=== PATIENT | female | born 1965 | race Hispanic/Latino ===

== ENCOUNTER 2020-07-05 11:15 | Emergency (ER) | payer OTHER ==
[~2020-07-05] VITALS: Ht 167.6 cm; Wt 74.8 kg
--- NOTE | 2020-07-05 11:44 | Emergency Department Note ---
History of Present Illnes History of Present Illness Chief Complaint: Eye, Ear, Nose, Throat, Dental History of Present Illness This is a 55 year old female, with no significant past medical history, who presents with a two-week history of progressively worsening itching of the nose and throat, sneezing, and clear rhinorrhea. She denies any cough, chest tightness, or throat tightness. Patient has no history of asthma. Patient has been taking Genesis at home, without relief of her symptoms. Patient states that she developes these symptoms at about this time each year, and that her PCP typically gives her a steroid shot, which relieves her symptoms. Patient denies any fever, chills, nausea, or vomiting. Historian: Patient Arrival Mode: Car Past Medical/Family History Physician Review I have reviewed the patient's past medical and family history. Any updates have been documented here. Past Medical History Recent Fever: No Clinical Suspicion of Infectio: No New/Unexplained Change in Ment: No Past Medical History: None Past Surgical History: None Social History Smoking Cessation: Never Smoker Alcohol Use: None Any Illegal Drug Use: No TB Exposure/Symptoms: No Physically hurt or threatened: No Family History Family history of heart diseas: No Other Any Pre-Existing Lines (PICC,: No Is patient up to date on immun: No Review of Systems Review of Systems Constitutional: Denies chills, Denies fever, Denies malaise EENTM: Denies eye pain, Denies tearing Cardiovascular: Denies chest pain, Denies palpitations Respiratory: Denies dyspnea Gastrointestinal: Denies nausea, Denies vomiting Genitourinary: Reports no symptoms Musculoskeletal: Reports no symptoms Integumentary: Denies change in color, Denies rash Neurological: Reports no symptoms Psychological: Reports no symptoms Review of other systems: All other systems negative Physical Exam Related Data Allergies: Coded Allergies: cephalexin (Verified Allergy, Unknown, 07/05/20) Triage Vital Signs Vital Signs Date Time Temp Pulse Resp B/P (MAP) Pulse Ox O2 Delivery O2 Flow Rate FiO2 07/05/20 11:15 98.0 77 16 142/85 100 Room Air Vital signs reviewed: Yes Physical Exam CONSTITUTIONAL Constitutional: Present well-developed, Present well-nourished; Absent distressed, Absent ill appearing HENT HENT: Present normocephalic, Present atraumatic, Present rhinorrhea (clear rhinorrhea), Present pharynx abnormal (slightly erythematous posterior pharynx without exudate.); Absent nose normal (erythematous and edematous inferonasal turbinates), Absent nasal congestion EYES Eyes: Reports PERRL, Reports conjunctivae normal NECK Neck: Present ROM normal PULMONARY Pulmonary: Present effort normal, Present breath sounds normal CARDIOVASCULAR Cardiovascular: Present regular rhythm, Present heart sounds normal, Present capillary refill normal, Present normal rate; Absent murmur GASTROINTESTINAL GENITOURINARY SKIN Skin: Present warm, Present dry; Absent erythema, Absent rash MUSCULOSKELETAL Musculoskeletal: Present ROM normal NEUROLOGICAL Neurological: Present alert, Present oriented x 3, Present no gross motor or sensory deficits PSYCHOLOGICAL Psychological: Present mood/affect normal, Present judgement normal Assessment & Plan Medical Decision Making MDM - Recommended over the counter medications to take for your allergy symptoms: - Cetirzine/Zyrtec 10 mg - 1 tab daily - Nasacort Nasal [place] - 2 sprays each nostril once daily. - Drink plenty of water, to stay well hydrated. - Follow-up with your Primary Care Physician, if your symptoms persist or worsen, despite treatment. (At the end of the visit, patient stated that "Dr. Garber used to prescribe Alprazolam, to help her relax, but that he can't prescribe it for her any more, due to the rules at their clinic." She questioned if I could prescribe this medication for her. I explained that since I am seeing her for allergic rhinitis, that this medication cannot be prescribed. She is advised to follow up with her PCP for further prescriptions of this medication, if needed. [facility] [employer] website was queried, and her last prescription for this medication was in 04/2020. Prior to that, it appears that she was receiving monthly prescriptions. It appears that there was an attempt to wean down the dosing.) Assessment & Plan Final Impression: (1) Allergic rhinitis (2) Pruritus (3) Sneezing Depart Disposition: HOME, SELF-CARE Last Vital Signs Date Time Temp Pulse Resp B/P (MAP) Pulse Ox O2 Delivery O2 Flow Rate FiO2 07/05/20 11:15 98.0 77 16 142/85 100 Room Air DAMIÁN COOK MD Jul 05, 2020 11:44
[2020-07-05] MEDS ORDERED: DEXAMETHASONE SOD PHOS 10 MG/1 ML VIAL IM ONE (11:45)
[2020-07-05] MEDS ORDERED: DEXAMETHASONE SOD PHOS INJ 4 MG/ML VIAL ONE (11:56)
--- OUTSIDE RECORDS SUMMARY | 2020-07-05 12:24 | XMS REPORT | Clinical Summary ---
Author Author [facility] Organization [facility] Address Unknown Phone Unavailable Care Team Providers Care Pan Reclaim Processor Name Role Phone Benedicto Garber MD PCP Allergies Comments Active Allergy Reactions Severity Noted Date Cephalexin 03/24/2019 Medications End Date Status Medication Sig Dispensed Refills Start Date Active ALPRAZolam (XANAX) 0.5 MG Take 0.5 mg 0 tablet by mouth as 9 needed. Active DULoxetine (CYMBALTA) 30 0 MG capsule 9 Active levothyroxine (SYNTHROID) 0 100 mcg tablet 9 Active montelukast (SINGULAIR) 0 10 mg tablet 9 04/02/2020 predniSONE (DELTASONE) 20 Take 3 tabs 30 tablet 0 mg tablet once a day x 9 3 days, then 2 tabs once a day for 3 days, then 1 tab once a day x 3 days Active Problems Not on file Encounters Care Team Description Date Type Specialty Occupational exposure to uns pecified risk factor (Primary Dx) 05/30/2020 Employee Health Employee Health 05/30/2020 Benedicto Mathews MD Breast cancer screening 01/02/2020 Hospital Radiology Encounter Benedicto Garber MD Other abnormal and inconclusive findings on diagnostic imaging of breast 01/02/2020 Hospital Radiology Encounter 01/02/2020 Benedicto Mathews MD Other abnormal and inconclusive findings on diagnostic imaging of breast (Primary Dx) 12/19/2019 Transcribe Access Orders Irena Geronimo 12/09/2019 Telephone Radiology Bradno Garber DO Encounter for screening mammogram for ma lignant neoplasm of breast 12/06/2019 Hospital Radiology Encounter 12/06/2019 Brando Mathews DO Encounter for screening mammogram for ma lignant neoplasm of breast (Primary Dx) 11/28/2019 Transcribe Access Orders Sendy Anders MD Chest pain, unspecified type (Primary Dx ) 09/21/2019 Emergency Emergency Medicine after 07/05/2019 Medical History Medical History Date Comments Anxiety Hyperlipidemia Hypothyroidism Social History Date Tobacco Use Types Packs/Day Years Used Never Smoker Smokeless Tobacco: Never Used Drinks/Week oz/Week Comments Alcohol Use Not Currently Sex Assigned at Date Recorded Not on file Last Filed Vital Signs Reading Time Taken Comments Vital Sign 136/63 09/21/2019 1:45 AM WIRE WRAPPER MACHINE OPERATOR Blood Pressure 75 09/21/2019 1:45 AM WIRE WRAPPER MACHINE OPERATOR Pulse 37 C (98.6 F) 09/21/2019 12:22 AM WIRE WRAPPER MACHINE OPERATOR Temperature 16 09/21/2019 1:45 AM WIRE WRAPPER MACHINE OPERATOR Respiratory Rate 99% 09/21/2019 1:45 AM WIRE WRAPPER MACHINE OPERATOR Oxygen Saturation - - Inhaled Oxygen Concentration 72.6 kg (160 lb) 09/21/2019 12:22 AM WIRE WRAPPER MACHINE OPERATOR Weight 167.6 cm (5' 6") 09/21/2019 12:22 AM WIRE WRAPPER MACHINE OPERATOR Height 25.82 09/21/2019 12:22 AM WIRE WRAPPER MACHINE OPERATOR Body Mass Index Plan of Treatment Health Maintenance Due Date Last Done Comments CERVICAL CANCER SCREENING 1988 COLONOSCOPY SCREENING 2017 SHINGLES VACCINES (#1) 2017 INFLUENZA VACCINE 04/27/2020 BREAST CANCER SCREENING 01/01/2022 01/02/2020, 01/02/2020, 12/06/2019, Additional history exists Procedures Comments Procedure Name Priority Date/Time Associated Diag nosis TB IN-TUBE QUANTIFERON Routine 05/30/2020 Occupat ional exposure to PLUS 9:46 AM CDT unspecified risk fa ctor US BREAST COMPLETE Routine 01/02/2020 Breast canc er screening BILATERAL 8:33 AM CDT MAMMO BREAST DIAGNOSTIC Routine 01/02/2020 Other abnormal and TOMOSYNTHESIS RIGHT 8:09 AM CDT inconclusive find ings on diagnostic imaging of breast MAMMO BREAST SCREEN Routine 12/06/2019 Encounter for screening TOMOSYNTHESIS BILATERAL 2:51 PM CDT mammogram for malignant neoplasm of breast XR CHEST 2 VW STAT 09/21/2019 1:08 AM WIRE WRAPPER MACHINE OPERATOR ESTIMATED GFR STAT 09/21/2019 12:31 AM WIRE WRAPPER MACHINE OPERATOR HCG QUALITATIVE, SERUM STAT 09/21/2019 SCREEN 12:31 AM WIRE WRAPPER MACHINE OPERATOR LIPASE LEVEL STAT 09/21/2019 12:31 AM WIRE WRAPPER MACHINE OPERATOR TROPONIN STAT 09/21/2019 12:31 AM WIRE WRAPPER MACHINE OPERATOR COMPREHENSIVE METABOLIC STAT 09/21/2019 PANEL 12:31 AM WIRE WRAPPER MACHINE OPERATOR HC COMPLETE BLD COUNT STAT 09/21/2019 W/AUTO DIFF 12:31 AM WIRE WRAPPER MACHINE OPERATOR ECG 12-LEAD STAT 09/21/2019 12:21 AM WIRE WRAPPER MACHINE OPERATOR ECG ED PRELIMINARY Routine 09/21/2019 INTERPRETATION 12:19 AM WIRE WRAPPER MACHINE OPERATOR after 07/05/2019 Results * TB IN-TUBE Quantiferon plus (05/30/2020 9:46 AM CDT) Quantitative 0.020 IU/mL [facility] Quantitative 0.080 IU/mL [facility] TB1 REF LAB Quantitative 0.090 IU/mL [facility] TB2 REF [facility] Quantitative 9.130 IU/mL [facility] mitogen REF LAB Quant TB1-NIL 0.060 IU/mL [facility] REF [facility] Quant TB2-NIL 0.070 IU/mL [facility] RE[facility] Quantitative 9.110 IU/mL [facility] mitogen-NIL REF LAB Qualitative Negative [facility] interpretation Comment: REF LAB Results are POSITIVE when either of the following conditions are met: 1.Nil <= 8.0 AND TB1-Nil >= 0.35 AND >= 25% of Nil (TB2 is any value) or 2.Nil <= 8.0 AND TB2-Nil >= 0.35 AND >= 25% of Nil (TB1 is any value) Results are NEGATIVE when all of the following conditions are met: 1.Nil <= 8.0 2.TB1-Nil and TB2-Nil < 0.35 or [>= 0.35 AND < 25% of Nil] 3.Mitogen-Nil >= 0.50 Results are INDETERMINATE under either of the following conditions: 1a.Nil <= 8.0 AND Mitogen-Nil < 0.50 AND 1b 1b.Both TB1-Nil AND TB2-Nil < 0.35 or [>= 0.35 AND <25% of Nil] 2.Nil > 8.0 Warnings and Limitations 1)A negative QFT-Plus result does not preclude the possibility of M. tuberculosis infection or tuberculosis disease: False-negative results can be due to stage of infection (e.g., specimen obtained prior to the development of cellular immune response), co-morbid conditions that affect immune function, incorrect handling of the blood collection tubes following venipuncture, incorrect performance of the assay, or other individual immunological variables. Heterophile antibodies or non-specific IFN-gamma production from other inflammatory conditions may mask specific responses to ESAT-6 or CFP-10 peptides. 2)A positive QFT-Plus result should not be the sole or definitive basis for determining infection with M. tuberculosis. Incorrect performance of the assay may cause false-positive QFT-Plus results. A positive QFT-Plus result should be followed by further medical evaluation for active TB disease (e.g., Acid Fast Bacilli smear and culture, chest X-ray). 3)While ESAT-6 and CFP-10 are absent from all BCG strains and from most known nontuberculous mycobacteria, it is possible that a positive QFT-Plus result may be due to infection by M. kansasii, M. szulgai, or M. marinum. If such infections are suspected, alternative tests should be performed. 4)A false-negative QFT-Plus result can be caused by incorrect blood sample collection or improper handling of the specimen affecting lymphocyte function. Please refer to Specimen Collection and Handling section, page 17, for correct handling of the blood specimens. Delay in incubation may cause false negative or indeterminate results, and other technical parameters may affect ability to detect a significant IFN-gamma response. 5)The effect of lymphocyte count on reliability of QFT-Plus results is unknown. Lymphocyte counts may vary over time for any individual person, and from person to person. The minimum number of lymphocytes required for a reliable test result has not been established and may also be variable. 6)A positive QFT-Plus result can suggest and support the diagnosis of tuberculosis disease. ESAT-6 and CFP-10 are present in M. tuberculosis, but infections by other mycobacteria, including M. kansasii, M. szulgai, and M.marinum may also cause positive results. Other diagnostic evaluations (e.g., AFB smear and culture, chest X-ray) besides QFT-Plus are needed to confirm tuberculosis disease. 7)The predictive value of a negative QFT-Plus result in immunosuppressed persons has not been determined. Specimen Blood Performing Organization Address City/[facility] Code P sugar Number [facility] DEPARTMENT OF [address] [place] [address] PATHOLOGY AND GENOMIC MEDICINE [facility] REF [facility] * US Breast Complete Bilateral (01/02/2020 8:33 AM CDT) Specimen Narrative Performed At PROCEDURE: MAMMO BREAST DIAGNOSTIC TOMOSYNTHESIS RIG T, US BREAST COMPLETE [facility] BILATERAL Bilateral real-time whole breast sonogr aphy included all four quadrants and the retroareolar regions under close superv ision by the radiologist. Computer aided detection with tomosynth esis was utilized for the interpretation. HISTORY: 54-year-old female with a hi story of right clear/white nipple discharge for 27 years presenting for a dditional evaluation. COMPARISON: 11/04/2018. DENSITY: The fibroglandular tissues are heterogeneously dense which may obscure the detection of small masses. MAMMOGRAM: There are multiple low densi ty obscured masses in the right breast. Spot compression of the right subareola r region demonstrate no suspicious mass, calcifications or mammographic abnormal ity. ULTRASOUND: There are innumerable simpl e cysts in both breasts. No suspicious mass or acoustic abnormality is identif ied in either breast. IMPRESSION: 1. No mammographic or sonographic abnor mality in the right breast. 2. Fibrocystic changes in both breasts. RECOMMENDATION: Correlation with physic al exam and annual screening mammography. Findings and recommendations were discu ssed with the patient. BI-RADS 2: BENIGN This facility is accredited by [employer] for Mammography. A negative x-ray report should not shanice y biopsy if a dominant or clinically suspicious mass is present. Not all c ancers are identified by x-ray. [id number] Performing Organization Address City/[facility] Code P sugar Number [facility] [address] [place] [address] * Mammo Breast Diagnostic Tomosynthesis Right (01/02/2020 8:09 AM CDT) Specimen Narrative Performed At PROCEDURE: MAMMO BREAST DIAGNOSTIC TOMOSYNTHESIS RIGH T, US BREAST COMPLETE [facility] BILATERAL Bilateral real-time whole breast sonogr aphy included all four quadrants and the retroareolar regions under close superv ision by the radiologist. Computer aided detection with tomosynth esis was utilized for the interpretation. HISTORY: 54-year-old female with a hi story of right clear/white nipple discharge for 27 years presenting for a dditional evaluation. COMPARISON: 11/04/2018. DENSITY: The fibroglandular tissues are heterogeneously dense which may obscure the detection of small masses. MAMMOGRAM: There are multiple low densi ty obscured masses in the right breast. Spot compression of the right subareola r region demonstrate no suspicious mass, calcifications or mammographic abnormal ity. ULTRASOUND: There are innumerable simpl e cysts in both breasts. No suspicious mass or acoustic abnormality is identif ied in either breast. IMPRESSION: 1. No mammographic or sonographic abnor mality in the right breast. 2. Fibrocystic changes in both breasts. RECOMMENDATION: Correlation with physic al exam and annual screening mammography. Findings and recommendations were discu ssed with the patient. BI-RADS 2: BENIGN This facility is accredited by [employer] for Mammography. A negative x-ray report should not shanice y biopsy if a dominant or clinically suspicious mass is present. Not all c ancers are identified by x-ray. [id number] Performing Organization Address City/State/ZIP Code P sugar Number [facility] [address] [place] [address] * Mammo Breast Screen Tomosynthesis Bilateral (12/06/2019 2:51 PM CDT) Specimen Narrative Performed At PROCEDURE: MAMMO BREAST SCREEN TOMOSYNTHESIS BILATERA L [facility] Computer aided detection was utilized f or the interpretation of the digital bilateral screening mammography with to mosynthesis. COMPARISON: 11/04/2018 CLINICAL HISTORY: Screening mammogram.T he patient reports nipple discharge, side not documented. It is unclear whether t his nipple discharge is a change from her prior history of 27 years of clear righ t nipple discharge per 11/04/2018 screening mammogram report. The patient otherwise denies an y current breast complaints. DENSITY: The breast tissue is heterogen eously dense, which may obscure small masses. There are bilateral oval circumscribed and obscured waxing and waning similar-appearing masses, most compatib le with cysts/fibrocystic changes. Some of these masses in the left breast, suc h as in the left superior lateral breast are increased in size compared to prior mammogram from 2019. No other significant masses, calcifications, or other findings are s een in either breast. IMPRESSION: 1. Bilateral waxing and waning masses g reater in the left breast compared to 2019 mammogram, which may represent cys ts/fibrocystic changes but requires additional imaging evaluation. 2. No mammographic evidence of malignan cy in the right breast. However, the patient reports nipple discharge, side not documented. RECOMMENDATION: Diagnostic mammogram on the side of nipple discharge, side not documented on today's history sheet, as well as left breast ultrasound to further evaluate enlarging waxing and w aning masses. Right breast ultrasound would also be warranted if this is the side of nipple discharge . BI-RADS 0: INCOMPLETE - Need Additional Imaging Evaluation This facility is accredited by [employer] for Mammography. A negative x-ray report should not shanice y biopsy if a dominant or clinically suspicious mass is present. Not all c ancers are identified by x-ray. [id number] Performing Organization Address City/State/ZIP Code P sugar Number [facility] [address] [place] [address] * XR Chest 2 Vw (09/21/2019 1:08 AM WIRE WRAPPER MACHINE OPERATOR) Specimen Narrative Performed At EXAMINATION: XR CHEST 2 VW [facility] CLINICAL HISTORY: [address] pain normal ekg COMPARISON: 11/10/2016 IMPRESSION: Lines/Tubes: None. Lungs/Pleura: The lungs are clear. No pleural effusion or pneumothorax. Heart/Mediastinum: The cardiomediastina l silhouette is normal. Bones: No acute osseous abnormality. [facility]-[id number] Procedure Note Interface, Radiology Results Incoming - 09/21/2019 1:18 AM WIRE WRAPPER MACHINE OPERATOR EXAMINATION: XR CHEST 2 VW CLINICAL HISTORY: 54 years Female Chest pain normal ekg COMPARISON: 11/10/2016 IMPRESSION: Lines/Tubes: None. Lungs/Pleura: The lungs are clear. No pleural effusion or pneumothorax. Heart/Mediastinum: The cardiomediastinal silhouette is normal. Bones: No acute osseous abnormality. [facility]-[id number] Performing Organization Address City/State/ZIP Code P sugar Number [facility] [address] [place] [address] * Estimated GFR (09/21/2019 12:31 AM WIRE WRAPPER MACHINE OPERATOR) Estimated GFR >=90 mL/min/1.73 m2 [place] Comment: [employer] TEO [facility] Interpretation G1 >=90 Normal or high G2 60-89 Mildly decreased G3a 45-59 Mildly to moderately decreased G3b 30-44 Moderately to severely decreased G4 15-29 Severely decreased G5 <15 Kidney failure The eGFR was calculated using the Chronic Kidney Disease Epidemiology Collaboration (CKD-EPI) equation. Interpretation is based on recommendations of the National Kidney Foundation-Kidney Disease Outcomes Quality Initiative (NKF-KDOQI) published in 2014. Specimen Plasma specimen Performing Organization Address City/State/ZIP Code P sugar Number [facility] [place] [id number] [place] [address] [place], [place] [address] PATHOLOGY AND GENOMIC MEDICINE [place] JEISON BRUCE [address] [place] [address] [place] [address] [facility] * Troponin (09/21/2019 12:31 AM WIRE WRAPPER MACHINE OPERATOR) Troponin <0.006 0.000 - 0.040 ng/mL [place] Comment: JEISON BRUCE In patients suspected of [facility] having a myocardial infarction, along with all other appropriate clinical measures and actions including ECG and other diagnostics as appropriate, measure Ultra TnI at 0 hrs and at 3 hrs. Myocardial infarction VERY LIKELY The 0 hr TnI level is > 0.10 ng/mL Myocardial infarction LIKELY The 0 hr TnI level is > 0.04 ng/mL and 3 hr level is increased or decreased by at least 0.020 ng/mL Myocardial infarction VERY UNLIKELY Both the 0 hr and 3 hr TnI levels <= 0.04 ng/mL(within normal limits) OR 0 hr is > 0.04 ng/mL and 3 hr is increased OR decreased by less than 0.020 ng/mL Specimen Plasma specimen Performing Organization Address [facility] P sugar Number [facility] DEPARTMENT OF [address] [place] [address] [place], [place] [address] PATHOLOGY AND GENOMIC MEDICINE [address] [place] [address] [facility] * CBC with platelet and differential (09/21/2019 12:31 AM WIRE WRAPPER MACHINE OPERATOR) WBC 7.88 4.50 - 11.00 k/uL [facility] RBC 4.07 (L) 4.20 - 5.50 m/uL [facility] HGB 13.2 12.0 - 16.0 g/dL [facility] HCT 38.3 37.0 - 47.0 % [facility] MCV 94.1 82.0 - 100.0 fL [facility] MCH 32.4 27.0 - 34.0 pg [facility] MCHC 34.5 31.0 - 37.0 g/dL [facility] RDW - SD 40.4 37.0 - 55.0 fL [facility] MPV 10.8 8.8 - 13.2 fL [facility] Platelet count 226 150 - 400 k/uL [facility] Nucleated RBC 0.00 /100 WBC [facility] Neutrophils 58.5 39.0 - 69.0 % [facility] Lymphocytes 30.8 25.0 - 45.0 % [facility] Monocytes 8.9 0.0 - 10.0 % [facility] Eosinophils 1.0 0.0 - 5.0 % [facility] Basophils 0.3 0.0 - 1.0 % [facility] Specimen Blood Performing Organization Address City/[facility] P sugar Number [facility] DEPARTMENT OF [address] [place] [address] [place] [address] PATHOLOGY AND GENOMIC MEDICINE [facility] [address] * hCG qualitative, serum screen (09/21/2019 12:31 AM WIRE WRAPPER MACHINE OPERATOR) Pathologist [facility] hCG Negative [facility] serum [facility] Specimen Blood Performing Organization Address City/State/ZIP Code P sugar Number [facility] [place] [address] [place] [place], [place] [address] PATHOLOGY AND GENOMIC MEDICINE [place] [address] [address] [place] [address] * Lipase level (09/21/2019 12:31 AM WIRE WRAPPER MACHINE OPERATOR) Pathologist [facility] Lipase 15 13 - 60 U/L [facility] Specimen Plasma specimen Performing Organization Address City/[facility] P sugar Number [facility] DEPARTMENT OF [facility] [place] [address] PATHOLOGY AND [facility] MEDICINE [place] [address] [address] [place] [address] * Comprehensive metabolic panel (09/21/2019 12:31 AM WIRE WRAPPER MACHINE OPERATOR) [facility] Sodium 134 (L) 135 - 148 mEq/L [facility] Potassium 4.0 3.5 - 5.0 mEq/L [facility] Chloride 98 98 - 112 mEq/L [facility] CO2 23 (L) 24 - 31 mEq/L [facility] Anion gap 13@ANIO 7 - 15 mEq/L [facility] BUN 11 6 - 20 mg/dL [facility] Creatinine 0.70 0.50 - 0.90 mg/dL [facility] Glucose 106 (H) 65 - 99 mg/dL [facility] Calcium 9.6 8.3 - 10.2 mg/dL [facility] Protein 7.9 6.3 - 8.3 g/dL [place] Comment: [facility] Syfwgpl0371.6-7.0 g/dL [facility] 1 mbmt1211.4-7.6 g/dL 7 months-3baqp629.1-7.3 g/dL 1-2 baonx729.6-7.5 g/dL >3 xenpy804.0-8.0 g/dL 18-5882061.3-8.3 g/dL Albumin 4.6 3.5 - 5.0 g/dL [facility] A/G ratio 1.4 0.7 - 3.8 [facility] Alkaline 65 35 - 104 U/L [place] phosphatase [facility] AST 21 10 - 35 U/L [facility] ALT 14 5 - 50 U/L [facility] Total bilirubin 0.4 0.0 - 1.2 mg/dL [facility] Specimen Plasma specimen Performing Organization Address City/[facility] [place] [address] [place], [place] [address] PATHOLOGY AND GENOMIC MEDICINE [facility] [address] [place] [address] [facility] * ECG 12 lead (09/21/2019 12:21 AM WIRE WRAPPER MACHINE OPERATOR) Ventricular 98 [facility] rate Atrial rate 98 [facility] OH interval 112 [facility] QRSD interval 80 [facility] QT interval 344 [facility] QTC interval 439 [facility] P axis 1 32 [facility] QRS axis 1 39 [facility] T wave axis 59 [facility] EKG impression Normal sinus rhythm-Normal [facility] ECG-In automated comparison with ECG of 29-MAY-2016 22:37,-No significant change was found- Specimen Narrative Performed At This result has an attachment that is n ot available. Performing Organization Address [facility] P sugar Number [facility] [address] [place] [address] * ECG ED Preliminary Interpretation - Not an Order (09/21/2019 12:19 AM WIRE WRAPPER MACHINE OPERATOR) Narrative Performed At Sendy Anders MD 09/21/2019 1:28 AM ECG ED Preliminary Interpretation - Not an Order Performed by: Sendy Anders MD Authorized by: Sendy Anders MD ECG reviewed by ED Physician in the abs ence of a sheeter waxer operator: yes [id number]) Rate: ECG rate: 98 ECG rate assessment: normal Rhythm: Rhythm: sinus rhythm Ectopy: Ectopy: none QRS: QRS axis: Normal QRS intervals: Normal Conduction: Conduction: normal ST segments: ST segments: Normal T waves: T waves: normal after 07/05/2019 Insurance Type Payer Benefit Subscriber ID Effective Phone Address Plan / Dates Group PPO C UMR HM [id number] 2019-P BENEFIT resent PLAN PPO CIGNA CIGNA/JIMENEZ [id number] 2020-P GIANCE HM resent BENEFIT PLAN [phone] Employee [facility] Other ATTN:CHRISTIANO ALCARAZ [facility],Institutional nal (Home) [address] [facility] [phone] [place] [address] (Work) Advance Directives For more information, please contact: [phone] Patient Hot Stamp Operator Explanation Type Date Recorded Advance Directives, 03/24/2019 11:48 PM Living Will and Medical Power of Health Communications Specialist
--- OUTSIDE RECORDS SUMMARY | 2020-07-05 12:24 | XMS REPORT | Continuity of Care Document ---
Author Author [facility] Organization [facility] Address [address] [place] [address] Phone Unavailable Care Team Providers Care Experimental Physicist Name Role Phone Jcarlos GANNON, Ruddy Diane PCP Jcarlos GANNON, Ruddy Diane Attphys Irena Geronimo Attphys Unavailable Jcarlos PECK, Mo Michaels Attphys Martita GANNON, Dedra Kaba Attphys Payers Payer Name Policy Type Policy Number Effective Date Expiration Date S ruddy [facility] [id number] 2019-PresentPPO [id number] 2019 00:00:00 Levon Farr CIGNACIGNA/ALLEGIANCE BENEFIT [id number] 2019-Pr esentPPO [id number] 2020 00:00:00 Levon Farr Problems This patient has no known problems. Allergies, Adverse Reactions, Alerts Allergy Name Allergy Type Status Severity Reaction(s) Onset Date Inacti ve Date Treating Clinician Comments Source Cephalexin Propensity to adverse reactions to drug Active 2019-03-24 00:00:00 Levon fonseca Social History Social Habit Start Date Stop Date Quantity Comments Source Sex Assigned [facility] Tobacco use and exposure 2019-09-21 00:00:00 2019-09-21 00:00:00 Diana meade used Levon Farr Alcohol intake 2019-09-21 00:00:00 2019-09-21 00:00:00 Ex-drinker (fi nding) Levon Farr Smoking Status Start Date Stop Date Source Never smoker Levon fonseca Medications Ordered Medication Name Filled Medication Name Start Date Stop Da te Current Medication? Ordering Clinician Indication Dosage Frequency Signature (SIG) Comments Components Source ALPRAZolam (XANAX) 0.5 MG tablet 2019-09-04 00:00:00 Yes .5mg Take 0.5 mg by mouth as needed. Levon Farr levothyroxine (SYNTHROID) 100 mcg tablet 2019-09-04 00:00:00 Y es Levon Farr DULoxetine (CYMBALTA) 30 MG capsule 2019-09-01 00:00:00 Yes Levon Farr montelukast (SINGULAIR) 10 mg tablet 2019-07-20 00:00:00 Yes Levon Farr predniSONE (DELTASONE) 20 mg tablet 2019-03-24 00:00:0 0 2020-04-02 23:59:00 No Take 3 tabs onc e a day x 3 days, then 2 tabs once a day for 3 days, then 1 tab once a day x 3 days Levon Escudero ist Vital Signs Vital Name Observation Time Observation Value Comments Source Systolic blood pressure 2019-09-21 01:45:00 136 mm[Hg] Levon Farr Diastolic blood pressure 2019-09-21 01:45:00 63 mm[Hg] Levon Farr Heart rate 2019-09-21 01:45:00 75 /min Levon Farr Respiratory rate 2019-09-21 01:45:00 16 /min Jennifer Farr Oxygen saturation in Arterial blood by Pulse oximetry 2018-09 01:45:00 99 /min Levon Farr Body temperature 2019-09-21 00:22:00 37 Haley Jennifer Farr Body height 2019-09-21 00:22:00 167.6 cm Levon Farr Body weight 2019-09-21 00:22:00 72.576 kg Levon Farr BMI 2019-09-21 00:22:00 25.82 kg/m2 Levon Farr Procedures Procedure Date / Time Performed Performing Clinician Sourc e TB IN-TUBE QUANTIFERON PLUS 2020-05-30 09:46:00 Angelica Shoemaker US BREAST COMPLETE BILATERAL 2020-01-02 08:33:22 System, Provide r Not In Levon Farr MAMMO BREAST DIAGNOSTIC TOMOSYNTHESIS RIGHT 2020-01-02 08:09 :56 Maritza Garber MAMMO BREAST SCREEN TOMOSYNTHESIS BILATERAL 2019-12-06 14:51 :08 Jamel Garber [facility] XR CHEST 2 VW 2019-09-21 01:08:53 Sendy Staples ethodist HC COMPLETE BLD COUNT W/AUTO DIFF 2019-09-21 00:31:00 Enid Staples in [facility] COMPREHENSIVE METABOLIC PANEL 2019-09-21 00:31:00 Sendy Staples TROPONIN 2019-09-21 00:31:00 Sendy Staples ethodist LIPASE LEVEL 2019-09-21 00:31:00 Sendy Staples ethodist HCG QUALITATIVE, SERUM SCREEN 2019-09-21 00:31:00 Sendy Staples ESTIMATED GFR 2019-09-21 00:31:00 Sendy Staples ethodist ECG 12-LEAD 2019-09-21 00:21:28 Sendy Staples ethodist ECG ED PRELIMINARY INTERPRETATION 2019-09-21 00:19:50 Enid Staples in [facility] Levon Farr Plan of Care Planned Activity Planned Date Details Comments Source Future Scheduled Test 2022-01-01 00:00:00 BREAST CANCER SCRE ENING [code = BREAST CANCER SCREENING] [facility] Future Scheduled Test 2020-04-27 00:00:00 INFLUENZA VACCINE [code = INFLUENZA VACCINE] [facility] Future Scheduled Test 2017 00:00:00 COLONOSCOPY SCREEN ING [code = COLONOSCOPY SCREENING] [facility] Scheduled Test 2017 00:00:00 SHINGLES VACCINES (#1) [code = SHINGLES VACCINES (#1)] [facility] Future Scheduled Test 1988 00:00:00 Screening for areli gnant neoplasm of cervix (procedure) [code = 799851911] [facility] Encounters Start Date/Time End Date/Time Encounter Type Admission Type [facility] Facility Care Department Encounter ID Source 2020-05-30 00:00:00 2020-05-30 00:00:00 Outpatient [facility] [id number] Levon Escuderoist 2020-01-02 00:00:00 2020-01-02 00:00:00 Outpatient MARITZA GARBER [facility] [id number] [facility] 2020-01-02 00:00:00 2020-01-02 00:00:00 Outpatient JCARLOSMARITZA Ross [facility] [id number] [facility] 2019-12-06 00:00:00 2019-12-06 00:00:00 Outpatient JAMEL GARBER [facility] [id number] [place] [facility] 2019-09-21 00:00:00 2019-09-21 00:00:00 Emergency SENDY STAPLES [facility] [id number] [facility] Results Test Description Test Time Test Comments Results Result Comments Source TB IN-TUBE Quantiferon plus 2020-05-31 15:42:02 Test Item Quantitative NIL (test code = 5322) 0.020 IU/mL Quantitative TB1 (test code = 5501) 0.080 IU/mL Quantitative TB2 (test code = 5502) 0.090 IU/mL Quantitative mitogen (test code = 5324) 9.130 IU/mL Quant TB1-NIL (test code = 5503) 0.060 IU/mL Quant TB2-NIL (test code = 5504) 0.070 IU/mL Quantitative mitogen-NIL (test code = 5326) 9.110 IU/mL Qualitative interpretation (test code = 5327) Negative Results are POSITIVE when either of the following conditions are met:1.Nil <= 8.0 AND TB1-Nil >= 0.35 AND >= 25% of Nil (TB2 is any value) or2.Nil <= 8.0 AND TB2-Nil >= 0.35 AND >= 25% of Nil (TB1 is any value)Results are NEGATIVE when all of the following conditions are met:1.Nil <= 8.02.TB1-Nil and TB2-Nil < 0.35 or [>= 0.35 AND < 25% of Nil]3.Mitogen-Nil >= 0.50Results are INDETERMINATE under either of the following conditions:1a.Nil <= 8.0 AND Mitogen-Nil < 0.50 AND 1b1b.Both TB1-Nil AND TB2-Nil < 0.35 or [>= 0.35 AND <25% of Nil]2.Nil > 8.0Warnings and Limitations1)A negative QFT-Plus result does not preclude the possibility of M. tuberculosis infection or tuberculosis disease: False-negative results can be due to stage of infection (e.g., specimen obtained prior to the development of cellular immune response), co-morbid conditions that affect immune function, incorrect handling of the blood collection tubes following venipuncture, incorr ect performance of the assay, or other individual immunological variables. Heterophile antibodies or non-specific IFN-gamma production from other inflammatory conditions may mask specific responses to ESAT-6 or CFP-10 peptides.2)A positive QFT-Plus result should not be the sole or definitive basis for determining infection with M. tuberculosis. Incorrect performance of the assay may cause false-positive QFT-Plus results. A positive QFT-Plus result should be followed by further medical evaluation for active TB disease (e.g., Acid Fast Bacilli smear and culture, chest X-ray).3)While ESAT-6 and CFP-10 are absent from all BCG strains and from most known nontuberculous mycobacteria, it is possible that a positive QFT-Plus result may be due to infection by M. kansasii, M. szulgai, or M. marinum. If such infections are suspected, alternative tests should be performed.4)A false-negative QFT-Plus result can be caused by incorrect blood sample collection or improper handling of the specimen affecting lymphocyte function. Please refer to Specimen Collection and Handling section, page 17, for correct handling of the blood specimens. Delay in incubation may cause false negative or indeterminate results, and other technical parameters may affect ability to detect a significant IFN-gamma response.5)The effect of lymphocyte count on reliability of QFT-Plus results is unknown. Lymphocyte counts may vary over time for any individual person, and from person to person. The minimum number of lymphocytes required for a reliable test result has not been established and may also be variable.6)A positive QFT- Plus result can suggest and support the diagnosis of tuberculosis disease. ESAT- 6 and CFP-10 are present in M. tuberculosis, but infections by other mycobacteria, including M. kansasii, M. szulgai, and M.marinum may also cause positive results. Other diagnostic evaluations (e.g., AFB smear and culture, chest X-ray) besides QFT-Plus are needed to confirm tuberculosis disease.7)The predictive value of a negative QFT-Plus result in immunosuppressed persons has not been determined. [facility] [id number] 08:38:10PROCEDURE: MAMMO BREAST DIAGNOSTIC TOMOSYNTHESIS RIGHT, US BREAST COMPLETE BILATERALBilateral real-time whole breast sonography included all four quadrants and the retroareolar regions under close supervision by the radiologist. Computer aided detection with tomosynthesis was utilized for the interpretation. HISTORY: 54-year-old female with a history of right clear/white nipple discharge for 27 y ears presenting for additional evaluation. COMPARISON: 11/04/2018. DENSITY: The fi broglandular tissues are heterogeneously dense which may obscure the detection o f small masses. MAMMOGRAM: There are multiple low density obscured masses in the right breast. Spot compression of the right subareolar region demonstrate no thompson spicious mass, calcifications or mammographic abnormality. ULTRASOUND: There are innumerable simple cysts in both breasts. No suspicious mass or acoustic abnorm ality is identified in either breast. IMPRESSION: 1. No mammographic or sonogra phic abnormality in the right breast.2. Fibrocystic changes in both breasts. R ECOMMENDATION: Correlation with physical exam and annual screening mammography. Findings and recommendations were discussed with the patient. BI-RADS 2: BENIGN This facility is accredited by The [employer] for Mammography .A negative x-ray report should not delay biopsy if a dominant or clinically ed picious mass is present. Not all cancers are identified by x-ray. DWS01 [place] [facility] Tomosynthesis [id number] 08:38:10 PROCEDURE: MAMMO BREAST DIAGNOSTIC TOMOSYNTHESIS RIGHT, US BREAST COMPLETE BILAT ERALBilateral real-time whole breast sonography included all four quadrants and the retroareolar regions under close supervision by the radiologist. Computer ai ded detection with tomosynthesis was utilized for the interpretation. HISTORY: 54-year-old female with a history of right clear/white nipple discharge for 27 y ears presenting for additional evaluation. COMPARISON: 11/04/2018. DENSITY: The fi broglandular tissues are heterogeneously dense which may obscure the detection o f small masses. MAMMOGRAM: There are multiple low density obscured masses in the right breast. Spot compression of the right subareolar region demonstrate no thompson spicious mass, calcifications or mammographic abnormality. ULTRASOUND: There are innumerable simple cysts in both breasts. No suspicious mass or acoustic abnorm ality is identified in either breast. IMPRESSION: 1. No mammographic or sonogra phic abnormality in the right breast.2. Fibrocystic changes in both breasts. R ECOMMENDATION: Correlation with physical exam and annual screening mammography. Findings and recommendations were discussed with the patient. BI-RADS 2: BENIGN This facility is accredited by The [employer] for Mammography .A negative x-ray report should not delay biopsy if a dominant or clinically ed picious mass is present. Not all cancers are identified by x-ray. DWS01 [place] [facility] Tomosynthesis [id number] 08:21:28 * Test Item Value Reference Range Interpretation Comments SYD (test code = SYD) PROCEDURE: MAMMO BREAST SCRE EN TOMOSYNTHESIS BILATERAL Computer aided detection was utilized for the interpretation of the digital bilateral screening mammography with tomosynthesis. COMPARISON: 11/04/2018 CLINICAL HISTORY: Screening mammogram.The patient reports nipple discharge, side not documented. It is unclear whether this nipple discharge is a change from her prior history of 27 years of clear right nipple discharge per 11/04/2018 screening mammogram report. The patient otherwise denies any current breast complaints. DENSITY: The breast tissue is heterogeneously dense, which may obscure small ma sses.There are bilateral oval circumscribed and obscured waxing and waning similar-appearing masses, most compatible with cysts/fibrocystic changes. Some of these masses in the left breast, such as in the left superior lateral breast are increased in size compared to prior mammogram from 2019. No other significant masses, calcifications, or other findings are seen in either breast. IMPRESSION:1. Bilateral waxing and waning masses greater in the left breast compared to 2019 mammogram, which may represent cysts/fibrocystic changes but requires additional imaging evaluation.2. No mammographic evidence of malignancy in the right breast. However, the patient reports nipple discharge, side not documented. RECOMMENDATION: Diagnostic mammogram on the side of nipple discharge, side not documented on today's history sheet, as well as left breast ultrasound to further evaluate enlarging waxing and waning masses. Right breast ultrasound would also be warranted if this is the side of nipple discharge. BI-RADS 0: INCOMPLETE - Need Additional Imaging Evaluation This facility is accredited by the [employer] for Mammography. A negative x- ray report should not delay biopsy if a dominant or clinically suspicious mass is present. Not all cancers are identified by x-ray. DWS01 Lab Interpretation (test code = 00279-0) Abnormal Levon FarrECG 12 [id number] 09:15:10* Test Item Value Reference Range Interpretation Comments Ventricular rate (test code = 253) 98 Atrial rate (test code = 255) 98 [place] interval (test code = 266) 112 QRSD interval (test code = 260) 80 QT interval (test code = 264) 344 QTC interval (test code = 265) 439 P axis 1 (test code = 267) 32 QRS axis 1 (test code = 268) 39 T wave axis (test code = 270) 59 EKG impression (test code = 273) Normal sinus rhythm-N ormal ECG-In automated comparison with ECG of 29-MAY-2016 22:37,-No significant change was found- [place] [facility] Chest 2 [id number] 01:15:34Hm Interface, Radiology Results Incoming - 09/21/2019 1:18 AM CSTEXAMINATION: XR CHEST 2 VWCLINICAL HISTORY: 54 years Female Chest pain normal ekgCOMPARISON: 11/10/2016IMPRESSION:Lines/Tubes: None.Lungs/Pleura: The lungs are clear. No pleural effusion or pneumothorax.Heart/Mediastinum: The cardiomediastinal silhou ette is normal.Bones: No acute osseous abnormality.[facility]-[id number] [id number] 01:06:04* Test Item Value Reference Range Interpretation Comments Troponin (test code = 10289-8) <0.006 0-0.04 In patients suspected of having a myocardial infarction, along with all other appropriate clinical measures and actions including ECG and other diagnostics as appropriate, measure Ultra TnI at 0 hrs and at 3 hrs.Myocardial infarction VERY LIKELYThe 0 hr TnI level is > 0.10 ng/mL Jaison cardial infarction LIKELYThe 0 hr TnI level is > 0.04 ng/mL and 3 hr level is increased or decreased by at least 0.020 ng/mL Myocardi al infarction VERY UNLIKELYBoth the 0 hr and 3 hr TnI levels <= 0.04 ng/mL(within normal limits) OR 0 hr is > 0.04 ng/mL and 3 hr is increased OR decreased by less than 0.020 ng/mL [facility], serum [id number] 01:05:20* Test Item Value Reference Range Interpretation Comments hCG qualitative, serum (test code = 2118-8) Negative [place] [facility] [id number] 01:00:46* Test Item Value Reference Range Interpretation Comments Sodium (test code = 2951-2) 134 135- 148 mEq/L L Potassium (test code = 2823-3) 4.0 3.5- 5.0 mEq/L Chloride (test code = 2075-0) 98 98- 112 mEq/L CO2 (test code = 2028-9) 23 24- 31 mEq/L L Anion gap (test code = 35077-5) 13@ANIO 7- 15 mEq/L BUN (test code = 3094-0) 11 mg/dL 6-20 Creatinine (test code = 2160-0) 0.70 mg/dL 0.5-0.9 Glucose (test code = 2345-7) 106 mg/dL 65-99 H Calcium (test code = 80499-1) 9.6 mg/dL 8.3-10.2 Protein (test code = 2885-2) 7.9 g/dL 6.3-8.3 Lkbcevm3326.6-7.0 g/dL1 phuo1798.4-7.6 g/dL7 months-8oaol648.1-7.3 g/dL1-2 blsda286.6-7.5 g/dL>3 fwubw129.0-8.0 g/cB07-7725324.3-8.3 g/dL Albumin (test code = 1751-7) 4.6 g/dL 3.5-5 A/G ratio (test code = 1759-0) 1.4 0.7-3.8 Alkaline phosphatase (test code = 6768-6) 65 U/L 35-104 AST (test code = 1920-8) 21 U/L 10-35 ALT (test code = 1742-6) 14 U/L 5-50 Total bilirubin (test code = 1974-2) 0.4 mg/dL 0-1.2 Lab Interpretation (test code = 93720-0) Abnormal [place] [facility] [id number] 01:00:46* Test Item Value Reference Range Interpretation Comments Lipase (test code = 3040-3) 15 U/L 13-60 [place] MethodistEstimated [id number] 01:00:46* Test Item Value Reference Range Interpretation Comments Estimated GFR (test code = 5488) >=90 mL/min/1.73 m2 Catergory Units InterpretationG1 >=90 Normal or highG2 60-89 Mildly vxakcyofoP0k 45-59 Mildly to moderately surkvzrzyL5q 30-44 Moderately to severely decreasedG4 15-29 Severely decreasedG5 <15 Kidney failureThe eGFR was calculated using the Chronic Kidney Disease Epidemiology Collaboration (CKD-EPI) equation. Interpretation is based on recommendations of the National Kidney Foundation-Kidney Disease Outcomes Quality Initiative (NKF-KDOQI) published in 2014. [place] [facility] with platelet and [id number] 00:46:20* Test Item Value Reference Range Interpretation Comments WBC (test code = 90965-1) 7.88 4.50- 11.00 k/uL RBC (test code = 78950-7) 4.07 m/uL 4.2-5.5 L HGB (test code = 718-7) 13.2 g/dL 12-16 HCT (test code = 4544-3) 38.3 % 37-47 MCV (test code = 787-2) 94.1 fL 82-100 MCH (test code = 785-6) 32.4 pg 27-34 MCHC (test code = 786-4) 34.5 g/dL 31-37 RDW - SD (test code = 68131-0) 40.4 fL 37-55 MPV (test code = 28263-1) 10.8 fL 8.8-13.2 Platelet count (test code = 81263-8) 226 150- 400 k/uL Nucleated RBC (test code = 21882-3) 0.00 /100 WBC Neutrophils (test code = 63430-9) 58.5 % 39-69 Lymphocytes (test code = 18065-1) 30.8 % 25-45 Monocytes (test code = 53460-8) 8.9 % 0-10 Eosinophils (test code = 54959-7) 1.0 % 0-5 Basophils (test code = 33694-3) 0.3 % 0-1 Lab Interpretation (test code = 64674-1) Abnormal [facility] [place] [facility] Preliminary Interpretation - Not an [id number] 00:19:50Sendy Staples MD 09/21/2019 1:28 [facility] ED Preliminary Interpretation - Not an OrderPerformed by: Sendy Staples MDAuthorized by: Sendy Staples MD ECG reviewed by ED Physician in the absence of a milk sampler: yes ([id number]) Rate: ECG rate: 98 ECG rate assessment: normal Rhythm: Rhythm: sinus rhythm Ectopy: Ectopy: none QRS: QRS axis: Normal QRS intervals: NormalConduction: Conduction: normal ST segments: ST segments: NormalT waves: T waves: normal Levon Farr
== END 2020-07-05 12:35 | disposition home or self-care (01) ==
LOC: FSED 11:36
DX: J30.9 Allergic rhinitis, unspecified (principal); R06.7 Sneezing; L29.9 Pruritus, unspecified
CPT/HCPCS: 99282; J1100